=== PATIENT | female | born 1960 | race African-American/Black ===

== ENCOUNTER 2017-10-26 15:39 | Outpatient (CLI) | payer BC | END 2017-10-26 15:40 | disposition home or self-care (01) | LOC: BICMAMMO 15:39 | PROVIDERS: ATTEND Family Medicine | DX: Z12.31 Encounter for screening mammogram for malignant neoplasm of breast (principal) | CPT/HCPCS: 77063; 77067 ==

== ENCOUNTER 2018-10-29 09:42 | Outpatient (CLI) | payer BC ==
--- NOTE | 2018-10-29 14:45 | MMO ---
Bilateral MAMMO Bilat Screen [facility]. CLINICAL HISTORY: Patient is 57 years old and is seen for screening. The patient has no family history of breast cancer. The patient has no personal history of cancer. VIEWS: The views performed were: bilateral craniocaudal with tomosynthesis; bilateral mediolateral oblique with tomosynthesis; and right mediolateral oblique. FILMS COMPARED: The present examination has been compared to prior imaging studies performed at [facility] on 08/07/2014, 09/02/2015, 10/24/2016 and 10/26/2017. This study has been interpreted with the assistance of computer-aided detection. MAMMOGRAM FINDINGS: The breasts are almost entirely fat. Finding 1: There are stable benign appearing calcifications seen in both breasts. Finding 2: There is a stable focal asymmetry seen in the sub-areolar region of the right breast. There are no suspicious masses, suspicious calcifications, or new areas of architectural distortion. IMPRESSION: THERE IS NO MAMMOGRAPHIC EVIDENCE OF MALIGNANCY. A ROUTINE FOLLOW-UP MAMMOGRAM IN 1 YEAR IS RECOMMENDED. THE RESULTS OF THIS EXAM WERE SENT TO THE PATIENT. ACR BI-RADS Category 2 - Benign finding MAMMOGRAPHY NOTE: 1. A negative mammogram report should not delay a biopsy if a dominant of clinically suspicious mass is present. 2. Approximately 10% to 15% of breast cancers are not detected by mammography. 3. Adenosis and dense breasts may obscure an underlying neoplasm. Reported by: ARIELLE CHILDERS MD Electonically Signed: [id number]
== END 2018-10-29 09:43 | disposition home or self-care (01) ==
LOC: BICMAMMO 09:42
PROVIDERS: ATTEND Family Medicine
DX: Z12.31 Encounter for screening mammogram for malignant neoplasm of breast (principal)
CPT/HCPCS: 77063; 77067

== ENCOUNTER 2020-05-04 14:39 | Outpatient (CLI) | payer BC | END 2020-05-04 14:40 | disposition home or self-care (01) | LOC: BICMAMMO 14:39 | PROVIDERS: ATTEND Family Medicine | DX: N64.4 Mastodynia (principal) | CPT/HCPCS: 77066; G0279 ==

== ENCOUNTER 2021-05-27 15:43 | Outpatient (CLI) | payer BC | END 2021-05-27 15:44 | disposition home or self-care (01) | LOC: BICMAMMO 15:43 | PROVIDERS: ATTEND Family Medicine | DX: Z12.31 Encounter for screening mammogram for malignant neoplasm of breast (principal) | CPT/HCPCS: 77063; 77067 ==

== ENCOUNTER 2021-10-13 14:19 | Emergency (ER) | payer BC ==
[2021-10-13 14:56] LABS: Bilirubin Negative (Negative); Blood, Urine Negative (Negative); Clarity Clear (Clear); Glucose, Urine (Dipstick) Normal (Negative); Ketone, Urine Negative (Negative); Leukocyte Negative Leu/uL (Negative); Nitrite Negative (Negative); Protein, Urine (Dipstick) Negative (Neg-Trace); Specific Gravity, Urine 1.023 (1.002-1.036)
[2021-10-13 15:33] LABS: #Eosinphils 0.1 thou/uL (0.0-0.7); #Lymphocytes 1.3 thou/uL (1.20-3.40); #Monocytes 0.5 thou/uL (0.11-0.59); #Neutrophils 2.7 thou/uL (1.40-6.50); %Basophils 0.8 % (0.0-1.0); %Eosinophils 2.7 % (0.0-10.0); %Lymphocytes 27.8 % (21.0-51.0); %Monocytes 10.8 % (0.0-10.0); %Neutrophils 57.9 % (42.0-75.0); Hemoglobin 13.5 g/dL (12.0-16.0); Mean Corpuscular HGB CONC 32.8 g/dL (32.0-36.0); Mean Corpuscular Hemoglobin 31.2 pg (27.0-31.0); Mean Corpuscular Volume 95.4 fL (78.0-98.0); Platelet Count 203 thou/uL (130-400); Red Blood Cell (RBC) Count 4.31 mill/uL (4.20-5.40); White Blood Cell (WBC) Count 4.7 thou/uL (4.8-10.8)
[2021-10-13 15:54] LABS: ALT (SGPT) 24 U/L (8-55); AST (SGOT) 14 U/L (5-34); Albumin 4.1 g/dL (3.5-5.0); Alkaline Phosphatase 60 U/L (40-110); Anion Gap 12 mmol/L (10-20); BUN (Urea Nitrogen) 16 mg/dL (9.8-20.1); Bilirubin, Total 0.4 mg/dL (0.2-1.2); Calc. Creatinine Clearance 0 mL/min (70-130); Calcium 9.7 mg/dL (7.8-10.44); Carbon Dioxide 29 mmol/L (22-29); Chloride 105 mmol/L (98-107); Estimated GFR 86; Globulin 3.2 g/dL (2.4-3.5); Glucose 167 mg/dL (70-105); Potassium 3.8 mmol/L (3.5-5.1); Protein, Total 7.3 g/dL (6.0-8.3); Sodium 142 mmol/L (136-145)
== END 2021-10-13 17:52 | disposition home or self-care (01) ==
LOC: ERS 14:19
DX: M54.50 Low back pain, unspecified (principal); E11.9 Type 2 diabetes mellitus without complications; E78.5 Hyperlipidemia, unspecified; Z79.899 Other long term (current) drug therapy; Z79.82 Long term (current) use of aspirin
CPT/HCPCS: 36415; 76705; 80053; 81003; 83690; 85025

== ENCOUNTER 2021-11-23 13:17 | Outpatient (CLI) | payer BC | END 2021-11-23 13:18 | disposition home or self-care (01) | LOC: MRI 13:17 → TBSIIMAG 13:18 | PROVIDERS: ATTEND Specialist | DX: M51.16 Intervertebral disc disorders with radiculopathy, lumbar region (principal) | CPT/HCPCS: 72148 ==

== ENCOUNTER 2022-12-25 06:36 | Emergency (ER) | payer BC ==
[2022-12-25] MEDS ORDERED: Ondansetron ODT 4 MG TAB ONE (07:32)
[2022-12-25] MEDS ORDERED: Morphine 4 MG/ML VIAL ONE (07:33)
[2022-12-25] MEDS ORDERED: Boostrix 0.5 ML (Tdap) VIAL (>/=7 yrs of age) ONE (07:49)
== END 2022-12-25 09:44 | disposition home or self-care (01) ==
LOC: ERS 06:36
DX: M25.552 Pain in left hip (principal); M16.12 Unilateral primary osteoarthritis, left hip; E11.9 Type 2 diabetes mellitus without complications; E78.5 Hyperlipidemia, unspecified; W10.9XXA Fall (on) (from) unspecified stairs and steps, initial encounter; Y93.89 Activity, other specified; Y92.009 Unspecified place in unspecified non-institutional (private) residence as the place of occurrence of the external cause; Z79.82 Long term (current) use of aspirin; Z79.4 Long term (current) use of insulin; Z79.899 Other long term (current) drug therapy
CPT/HCPCS: 72170; 90471; 90715; 96374; J2270; Q0162